=== PATIENT | female | born 1935 | race Caucasian/White ===

== ENCOUNTER 2024-02-15 10:17 | Inpatient (IN) ==
[2024-02-15 10:35] LABS: ABG O2 HGB 84.5 % (95-100); ABG PH 7.47 (7.35-7.45); HCO3 24.7 (21-28); MetHb 1.6 (0-1.5); TCO2 25.7 (19-24); sO2 85.5 % (94-98); tHb 12.6 g/dl (11.7-17.4)
--- NOTE | 2024-02-15 10:37 | ED.PDOC ---
General ED Provider: Dr. IRVIN JENKINS MD Chief Complaint: Shortness of Air Stated Complaint: Patient presents to ER via EMS from long-term facility complaining of shortness of breath. Reports onset was a couple days ago and has been gradually worsening. Has been using supplemental oxygen but has continued to feel weaker. No other alleviating or aggravating factors identified. EMS reports that the facility increased her oxygen to 6 L nasal cannula but was unable to improve her SpO2. EMS reports the highest they were able to get her SpO2 was in the 80s en route. Time Seen by Provider: 02/15/24 10:41 Mode of Arrival: Ambulance Information Source: Patient and EMT Exam Limitations: Clinical condition and Dementia Primary Care Provider: CLARICE MONROY Nursing and Triage Documentation Reviewed and Agree: Yes What is Opioid Naive?: *Opioid Naive implies the patient is not already taking opioids or not chronically receiving opioids on a daily basis. *PRN dosing is not "usually" associated with tolerance. *Patients are at higher risk of over-sedation and aspiration. What is Opioid Tolerant?: *Opioid Tolerance implies less than the expected response to an opioid. *Acquired tolerance is defined by the patient taking 60mg of oral morphine daily (or equianalgesic dose of another opioid) for 1 week or more. *Often associated with chronic pain. *May take more than usual dose to achieve desired pain control. Review of Systems Review Of Systems Constitutional: Reports No symptoms All Other Systems: Reviewed and Negative (Except for those listed in the HPI above.) [facility]LY [facility] Medical History Essential (primary) hypertension I10 - Essential (primary) hypertension (ICD-10) Presence of cardiac pacemaker Z95.0 - Presence of cardiac pacemaker (ICD-10) Other reduced mobility Z74.09 - Other reduced mobility (ICD-10) Cognitive communication deficit R41.841 - Cognitive communication deficit (ICD-10) Difficulty in walking, not elsewhere classified R26.2 - Difficulty in walking, not elsewhere classified (ICD-10) Muscle weakness (generalized) M62.81 - Muscle weakness (generalized) (ICD-10) Mixed hyperlipidemia E78.2 - Mixed hyperlipidemia (ICD-10) Repeated falls R29.6 - Repeated falls (ICD-10) Personal history of COVID-19 Z86.16 - Personal history of COVID-19 (ICD-10) Unsteadiness on feet R26.81 - Unsteadiness on feet (ICD-10) Other lack of coordination R27.8 - Other lack of coordination (ICD-10) Other abnormalities of gait and mobility R26.89 - Other abnormalities of gait and mobility (ICD-10) Dysphagia, oral phase R13.11 - Dysphagia, oral phase (ICD-10) Age related osteoporosis M81.0 - Age-related osteoporosis without current pathological fracture (ICD- 10) Cervicalgia M54.2 - Cervicalgia (ICD-10) 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 - 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 (ICD-10) 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 - Nonrheumatic aortic valve disorder, unspecified (ICD-10) Insomnia G47.00 - Insomnia, unspecified (ICD-10) Generalized anxiety disorder F41.1 - Generalized anxiety disorder (ICD-10) Depressive disorder F32.A - Depression, unspecified (ICD-10) Anemia D64.9 - Anemia, unspecified (ICD-10) Paroxysmal atrial fibrillation I48.0 - Paroxysmal atrial fibrillation (ICD-10) PAT (paroxysmal atrial tachycardia) I47.19 - Other supraventricular tachycardia (ICD-10) TIA (transient ischemic attack) G45.9 - Transient cerebral ischemic attack, unspecified (ICD-10) Cerebral ischemia I67.82 - Cerebral ischemia (ICD-10) Angina pectoris I20.9 - Angina pectoris, unspecified (ICD-10) 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 - Atherosclerotic heart disease of [place] coronary artery without angina pectoris (ICD-10) Dementia F03.90 - Unspecified dementia, unspecified severity, without behavioral disturbance, psychotic disturbance, mood disturbance, and anxiety (ICD-10) Female Reproductive History Menstrual Hx Hysterectomy: No Hx Tubal Ligation: No Physical Exam Physical Exam Appearance: Reports Ill-appearing, No pain distress and Well-nourished Ill-appearing: Mild Pain Distress: None Eyes: Reports BIRD, EOMI and Conjunctiva clear ENT: Reports Ears normal, Nose normal and Oropharynx normal Neck: Supple Respiratory: Reports Airway patent, Breath sounds clear, Breath sounds equal and Respirations nonlabored Cardiovascular: Reports RRR, Pulses normal, No rub and No murmur GI/: Reports Soft and Nontender Musculoskeletal: Reports Normal strength and ROM intact Skin: Reports Warm, Dry and Normal color Neurological: Reports Sensation intact, Motor intact, Alert and Oriented (A&Ox1 (person)) Psychiatric: Reports Affect appropriate and Mood appropriate Interpretation Radiology Interpretation Radiology Interpretation By: ED Physician Radiology Results: Negative Exam Interpreted: CXR Xray Comments: No acute cardiopulmonary process; cardiomegaly interpreted by me. Course Course 02/15/24 10:38 02/15/24 10:38 Orders, Labs, Meds: Lab Review 02/15/24 02/15/24 02/15/24 10:29 10:30 10:38 WBC 7.86 RBC 4.23 Hgb 11.7 L Hct 37.2 MCV 87.9 MCH 27.7 MCHC 31.5 L RDW Coeff of Clari 15.9 H Plt Count 239 Immature Gran % (Auto) 0.3 Neut % (Auto) 56.3 Lymph % (Auto) 29.8 [place] % (Auto) 5.9 Eos % (Auto) 7.3 H Baso % (Auto) 0.4 Neut # (Auto) 4.4 Lymph # (Auto) 2.3 [place] # (Auto) 0.5 Eos # (Auto) 0.6 Baso # (Auto) 0.0 Immature Gran # (Auto) 0.0 ESR 16 PT 11.1 H INR 1.07 Puncture Site Rt rad Base Excess 1.0 O2 Saturation 85.5 L ABG pH 7.47 H ABG pCO2 34.0 L ABG pO2 47.0 L* ABG HCO3 24.7 ABG Total CO2 25.7 H Edmundo Test Pos Hemoglobin 1.6 H Oxyhemoglobin 84.5 L Carboxyhemoglobin 2.0 H Total Hemoglobin 12.6 O2 Delivery Device Cannula Oxygen Liter Flow 4.00 FiO2 % 36.0 Sodium 140.0 Potassium 3.53 Chloride 108.0 H Carbon Dioxide 23.6 Anion Gap 11.93 BUN 15.9 Creatinine 0.89 Estimated GFR (MDRD) 60.00 BUN/Creatinine Ratio 17.86 Glucose 98.6 Lactic Acid 1.10 Calcium 8.94 Total Bilirubin 0.73 AST 32.7 ALT 22.8 Alkaline Phosphatase 121.7 Troponin I < 0.012 NT-Pro-B Natriuret Pep 783 H Total Protein 7.76 Albumin 4.12 Globulin 3.64 Albumin/Globulin Ratio 1.13 Procalcitonin < 0.05 Adenovirus (PCR) Not detected B. pertussis DNA (PCR) Not detected B.parapertussis DNA PCR Not detected C. pneumoniae DNA (PCR) Not detected Coronavirus OC43 (PCR) Not detected Coronavirus HKU1 (PCR) Not detected Coronavirus 229E (PCR) Not detected Coronavirus NL63 (PCR) Not detected Human Metapneumovir PCR Not detected Influenza Type A (PCR) Not detected Influenza B (RT-PCR) Not detected M. pneumoniae (PCR) Not detected Parainfluenza 1 (PCR) Not detected Parainfluenza 2 (PCR) Not detected Parainfluenza 3 (PCR) Not detected Parainfluenza 4 (PCR) Not detected RSV (PCR) Not detected Entero/Rhino (PCR) Detected H SARS-CoV-2 (PCR) Not detected Orders Category Date Time Status ADMIT OBSERVATION [PLACE PATIENT OBSERVATION] .TO ADMISSION 02/15/24 11:38 Active MEDSURG (MONITORED BED) ABG DRAW REQUEST Stat CARDIO 02/15/24 10:23 Completed NEBULIZER TREATMENT Stat CARDIO 02/15/24 10:26 Completed TELEMETRY MONITORING TELE CARE 02/15/24 11:38 Active ED APPLY O2 .ONCE EMERGENCY 02/15/24 10:23 Active ED SOFTWARE QUALITY ANALYST APPLIED .ONCE EMERGENCY 02/15/24 10:23 Active ED IV/MEDIPORT/POWERPORT .ONCE EMERGENCY 02/15/24 10:23 Active ED VITAL SIGNS .ONCE EMERGENCY 02/15/24 10:23 Active OXYGEN [ED APPLY O2] .ONCE EMERGENCY 02/15/24 10:50 Active ABG COOX Stat LAB 02/15/24 10:29 Completed BLOOD CULTURE (ED ONLY) Stat LAB 02/15/24 10:54 Received C-REACTIVE PROTEIN Stat LAB 02/15/24 10:38 Received CBC W/ AUTO DIFF Stat LAB 02/15/24 10:38 Completed COMPREHENSIVE METABOLIC PANEL Stat LAB 02/15/24 10:38 Completed ESR Stat LAB 02/15/24 10:38 Completed LACTIC ACID Stat LAB 02/15/24 10:38 Completed NT-PROBNP(ED) Stat LAB 02/15/24 10:38 Completed PROCALCITONIN Stat LAB 02/15/24 10:38 Completed PT WITH INR Stat LAB 02/15/24 10:38 Completed RESPIRATORY PANEL 2.1 (PCR) Stat LAB 02/15/24 10:30 Completed TROPONIN I Stat LAB 02/15/24 10:38 Completed URINALYSIS C & S IF INDICATED Stat LAB 02/15/24 18:05 Completed 0.9 % Sodium Chloride [Saline Flush] Meds 02/15/24 10:23 Active 1 syr IVF PRN PRN Ipratropium/Albuterol Neb [Duoneb] Meds 02/15/24 10:25 Discontinued 3 ml NEB ONCE STA Methylprednisolone Sod Succ/Pf [Solu-Medrol 125 mg] Meds 02/15/24 10:25 Discontinued 125 mg IVP ONCE STA CHEST, 1V AP ONLY Stat RADS 02/15/24 10:23 Completed Medications Generic Name Dose Route Start Last Admin Trade Name Freq PRN Reason Stop Dose Admin Acetaminophen 650 mg 02/15/24 13:00 Acetaminophen 325 Mg Tablet PO Q4H PRN Mild Pain Albuterol Sulfate 2.5 mg 02/15/24 13:00 Albuterol Sulfate 0.083% Vial.Neb NEB RTQ4H PRN Wheezing Albuterol/Ipratropium 3 ml 02/15/24 14:00 02/15/24 21:37 Ipratropium/Albuterol Vial.Neb NEB 3 ml RTQ4H ABHIJEET Administration Dextrose/Sodium Chloride 1,000 mls @ 75 mls/hr 02/15/24 15:30 02/15/24 17:04 Dextrose 5%-1/2ns Iv Solution IV 75 mls/hr .[id number] ABHIJEET Administration CEFTRIAXONE/D5W 1 GM PREMIX 1 gm in 50 mls @ 100 mls/hr 02/15/24 19:00 02/15/24 19:51 Rocephin 1 Gm/50 Ml D5w IV 02/18/24 18:59 100 mls/hr DAILY ABHIJEET Administration Methylprednisolone Sodium Succinate 40 mg 02/15/24 18:30 02/15/24 22:09 Methylprednisolone Sod Succ/Pf 40 Mg/Ml Vial IVP 40 mg Q8HR ABHIJEET Administration Sodium Chloride 1 syr 02/15/24 10:23 0.9% Sodium Chloride 10 Ml Disp.Syrin IVF PRN PRN To flush IV Discontinued Medications Generic Name Dose Route Start Last Admin Trade Name Freq PRN Reason Stop Dose Admin Albuterol/Ipratropium 3 ml 02/15/24 10:25 02/15/24 10:39 Ipratropium/Albuterol Vial.Neb NEB 02/15/24 10:26 3 ml ONCE STA Administration Methylprednisolone Sodium Succinate 125 mg 02/15/24 10:25 02/15/24 10:44 Methylprednisolone Sod Succ/Pf 125 Mg/2 Ml Vial IVP 02/15/24 10:26 125 mg ONCE STA Administration [address] [address] Diagnostic Imaging Diagnostic Imaging Report : [id number] Signed Patient: KWAME CIFUENTES Acct:[id number] Medical Record: [id number] : 1935 Loc: ED Room/Bed: Age/Sex: 88 / F ADM Status: REG ER Date of Service: 02/15/24 Ordering Physician: IRVIN JENKINS MD Procedure(s): CHEST, 1V AP ONLY Report Number(s): [id number] Accession Number(s): [id number] cc: CLARICE MONROY ; IRVIN JENKINS MD EXAM: CHEST RADIOGRAPH TECHNIQUE: Single frontal chest radiograph. HISTORY: Shortness of breath. COMPARISON: 05/18/2023. Correlation is also made with CT chest from 05/28/2023. FINDINGS: The patient is mildly leaning and rotated to the right. The patient's chin and and oxygen mask partially obscure the right upper chest. Left subclavian dual lead cardiac device, grossly stable in position. Oxygen tubing projects over the patient's right chest. Mild atelectasis of the right base. No pleural effusion or pneumothorax is seen. Stable cardiomegaly. Patient is status post coronary artery stenting. 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 No acute displaced rib fractures are identified. 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 IMPRESSION: 1. No acute findings in the chest. 2. Stable cardiomegaly. Dictated By: TERESSA BHATIA MD Signed By: TERESSA BHATIA MD Dictated Date/Time: 02/15/24 1116 Transcribed Date/Time: 02/15/24 1116 Signed Date/Time: 02/15/24 1125 Vital Signs: Temp Pulse Resp BP Pulse Ox O2 Flow Rate 02/15/24 10:40 4 02/15/24 10:32 98.2 F 91 20 135/74 85 L 11:36 - Spoke with on-call hospitalist (Maurizio Clark NP) regarding patient's status and current workup and management of acute respiratory failure secondary to +Rhino/enterovirus URI. Patient is resting comfortably using 10 L simple mask hemodynamically stable at this time. Patient has received DuoNeb x 1, Solu-Medrol 125. Respiratory panel pending at this time. Hospitalist agreed to admission to continue care. Discharge Plan Discharge Patient Disposition: PLACED OBSERVATION Discharge Problem: Respiratory failure with hypoxia, Viral upper respiratory illness Did you review [place] DUMP WORKER for ALL controlled substances?: Not Applicable ED Provider: IRVIN JENKINS Condition: Stable
[2024-02-15] MEDS: DUONEB NEB STA (10:39)
[2024-02-15 10:43] LABS: BASOPHILS % (AUTO) 0.4 % (0.0-3.0); EOSINOPHILS # (AUTO) 0.6 K/ul (0.0-0.7); EOSINOPHILS % (AUTO) 7.3 % (0.0-7.0); HEMATOCRIT 37.2 % (37.0-47.0); HEMOGLOBIN 11.7 g/dl (12.0-16.0); IMMATURE GRANULOCYTE % (AUTO) 0.3 % (0.0-5.0); LYMPHOCYTES # (AUTO) 2.3 K/uL (0.60-3.4); LYMPHOCYTES % (AUTO) 29.8 (10.0-50.0); MEAN CORPUSCULAR HEMOGLOBIN 27.7 pg (27.0-31.0); MEAN CORPUSCULAR HGB CONC 31.5 (31.8-35.4); MEAN CORPUSCULAR VOLUME 87.9 fl (81.0-99.0); MONOCYTES # (AUTO) 0.5 K/uL (0.4-2.0); MONOCYTES % (AUTO) 5.9 (0-10); NEUTROPHILS # (AUTO) 4.4 K/ul (2.0-6.9); NEUTROPHILS % (AUTO) 56.3 % (42.2-75.2); PLATELET COUNT 239 10^3/uL (140-440); RDW COEFFICIENT OF VARIATION 15.9 % (11.6-14.8); RED BLOOD COUNT 4.23 10^6/ul (4.20-5.40); WHITE BLOOD COUNT 7.86 K/ul (4.6-10.2)
[2024-02-15] MEDS: SOLU-MEDROL 125 MG IVP STA (10:44)
[2024-02-15 10:45] LABS: BORDETELLA PARAPERTUSSIS (PCR) NOT DETECTED (NOT DETECT); BORDETELLA PERTUSSIS (PCR) NOT DETECTED (NOT DETECT); CHLAMYDIA PNEUMONIAE (PCR) NOT DETECTED (NOT DETECT); CORONAVIRUS 229E (PCR) NOT DETECTED (NOT DETECT); CORONAVIRUS HKU1 (PCR) NOT DETECTED (NOT DETECT); CORONAVIRUS NL63 (PCR) NOT DETECTED (NOT DETECT); CORONAVIRUS OC43 (PCR) NOT DETECTED (NOT DETECT); HUMAN METAPNEUMOVIRUS (PCR) NOT DETECTED (NOT DETECT); INFLUENZA B (PCR) NOT DETECTED (NOT DETECT); MYCOPLASMA PNEUMONIAE (PCR) NOT DETECTED (NOT DETECT); PARAINFLUENZA VIRUS 1 (PCR) NOT DETECTED (NOT DETECT); PARAINFLUENZA VIRUS 2 (PCR) NOT DETECTED (NOT DETECT); PARAINFLUENZA VIRUS 3 (PCR) NOT DETECTED (NOT DETECT); PARAINFLUENZA VIRUS 4 (PCR) NOT DETECTED (NOT DETECT); RESPIRATORY SYNCYTIAL V (PCR) NOT DETECTED (NOT DETECT); SARS_COV_2 (PCR) NOT DETECTED (NOT DETECT)
[2024-02-15 10:55] LABS: PROTHROMBIN TIME 11.1 SEC (9.3-11.0)
[2024-02-15 10:56] LABS: ALANINE AMINOTRANSFERASE 22.8 U/L (0-35); ALBUMIN 4.12 g/dL (3.5-5.0); ALKALINE PHOSPHATASE 121.7 U/L (53-141); ASPARTATE AMINO TRANSFERASE 32.7 U/L (14-36); BILIRUBIN,TOTAL 0.73 mg/dL (0.2-1.3); BLOOD UREA NITROGEN 15.9 mg/dL (7-17); CALCIUM 8.94 mg/dL (8.4-10.2); CARBON DIOXIDE 23.6 mmol/L (22-30.0); CREATININE 0.89 mg/dL (0.60-1.30); GLUCOSE 98.6 mg/dL (74-106); POTASSIUM 3.53 mmol/L (3.5-5.1); TOTAL PROTEIN 7.76 g/dL (6.3-8.2)
[2024-02-15 11:08] LABS: TROPONIN I < 0.012 ng/ml (0.0000-0.120)
[2024-02-15 11:22] LABS: ERYTHROCYTE SEDIMENTATION RATE 16 mm/hr (0-20)
--- NOTE | 2024-02-15 11:25 | DI ---
EXAM: CHEST RADIOGRAPH TECHNIQUE: Single frontal chest radiograph. HISTORY: Shortness of breath. COMPARISON: 05/18/2023. Correlation is also made with CT chest from 05/28/2023. FINDINGS: The patient is mildly leaning and rotated to the right. The patient's chin and and oxygen mask parti ally obscure the right upper chest. Left subclavian dual lead cardiac device, grossly stable in posi tion. Oxygen tubing projects over the patient's right chest. Mild atelectasis of the right base. No pleural effusion or pneumothorax is seen. Stable cardiomegaly. Patient is status post coronary artery stenting. 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 No acute displaced rib fractures are identified. Stable 1.6 cm eggshell calcification of the left upper quadrant, correlates with splenic artery aneur ysm seen in the prior CT. IMPRESSION: 1. No acute findings in the chest. 2. Stable cardiomegaly.
[2024-02-15 11:39] LABS: ADENOVIRUS (PCR) NOT DETECTED (NOT DETECT); HUMAN RHINOVIRUS/ENTEROV (PCR) DETECTED (NOT DETECT)
[2024-02-15] MEDS ORDERED: ALBUTEROL 0.083% NEB NEB PRN (13:00)
[2024-02-15] MEDS ORDERED: TYLENOL PO PRN (13:00)
--- NOTE | 2024-02-15 13:04 | PCM ---
Date of Service Date Seen by Provider: 02/15/24 Time Seen by Provider: 13:00 Admit Day/Time Admission Date: 02/15/24 Admission Time: 12:15 Reason for Admission Chief Complaint: ACUTE RESPIRATORY FAILURE Hospital Provider Hospital Provider: OWEN STANLEY, [facility] [place] Primary Care Physician: CLARICE MONROY History of Present Illness History of Present Illness: 88 yo female [facility] local [facility] presented to the ER with shortness of breath. Patient has had a cough and not felt well over the last 3-4 days. Began requiring oxygen a couple days ago and progressively worsened. Per ER provider, EMS had sats in the 80s on 6L or so. Currently requiring 10L via simple mask. Patient normally is alert and oriented and ambulatory. Lethargic and unable to answer questions at this time. Case Discussed With Case Discussed With: Patient's case was discussed with the ER Physicians, Dr. Kaplan. Allergies Allergies Allergy/AdvReac Type Severity Reaction Status Date / Time No Known Allergies Allergy Verified 05/28/23 08:33 Current Medications Home Medications Milk of Magnesia 30 ml PO .every 3 days PRN constipation 08/27/22 [History Confirmed 02/15/24 Last Taken Unknown] acetaminophen 650 mg tablet,extended release 650 mg PO Q6HR PRN pain 08/27/22 [History Confirmed 02/15/24 Last Taken Unknown] aspirin 81 mg tablet,delayed release (Adult Low Dose Aspirin) 81 mg PO DAILY 08/27/22 [History Confirmed 02/15/24 Last Taken Unknown] bisacodyl 10 mg rectal suppository 10 mg HI ONCE PRN no results from milk of magnesia 08/27/22 [History Confirmed 02/15/24 Last Taken Unknown] memantine 14 mg capsule sprinkle,extended release 24hr 14 mg PO Q24H 08/27/22 [History Confirmed 02/15/24 Last Taken Unknown] amlodipine 5 mg tablet 5 mg PO .every am 05/28/23 [History Confirmed 02/15/24 Last Taken Unknown] apixaban 5 mg (74 tabs) tablets in a dose pack (Eliquis DVT-PE Treat 30D Start) See Rx Instructions PO .COMPLEX #74 ea 05/28/23 [Rx Confirmed 02/15/24 Last Taken Unknown] cyanocobalamin (vitamin B-12) 1,000 mcg capsule 1,000 mcg PO DAILY 05/28/23 [History Confirmed 02/15/24 Last Taken Unknown] famotidine 20 mg tablet 20 mg PO BID 05/28/23 [History Confirmed 02/15/24 Last Taken Unknown] fluticasone propionate 50 mcg/actuation nasal spray,suspension (24 Hour Allergy Relief) 1 spray intranasal DAILY PRN allergies 05/28/23 [History Confirmed 02/15/24 Last Taken Unknown] lisinopril 20 mg tablet 20 mg PO BID 05/28/23 [History Confirmed 02/15/24 Last Taken Unknown] loratadine 10 mg tablet (Allergy Relief (loratadine)) 10 mg PO DAILY 05/28/23 [History Confirmed 02/15/24 Last Taken Unknown] metoprolol succinate 25 mg tablet,extended release 24 hr 25 mg PO BID 05/28/23 [History Confirmed 02/15/24 Last Taken Unknown] nitroglycerin 0.4 mg sublingual tablet 0.4 mg sublingual PRN 05/28/23 [History Confirmed 02/15/24 Last Taken Unknown] ergocalciferol (vitamin D2) 1,250 mcg (50,000 unit) capsule 50,000 unit PO WEEKLY 02/15/24 [History Confirmed 02/15/24 Last Taken Unknown] Home Acetaminophen (Acetaminophen 325 Mg Tablet) 650 mg PO Q4H PRN PRN Reason: Mild Pain Albuterol Sulfate (Albuterol Sulfate 0.083% Vial.Neb) 2.5 mg NEB RTQ4H PRN PRN Reason: Wheezing Albuterol/Ipratropium (Ipratropium/Albuterol Vial.Neb) 3 ml NEB RTQ4H ABHIJEET Last Admin: 02/15/24 14:12 Dose: 3 ml Methylprednisolone Sodium Succinate (Methylprednisolone Sod Succ/Pf 40 Mg/Ml Vial) 40 mg IVP Q8HR ABHIJEET Sodium Chloride (0.9% Sodium Chloride 10 Ml Disp.Syrin) 1 syr IVF PRN PRN PRN Reason: To flush IV Discontinued Medications Albuterol/Ipratropium (Ipratropium/Albuterol Vial.Neb) 3 ml NEB ONCE STA Stop: 02/15/24 10:26 Last Admin: 02/15/24 10:39 Dose: 3 ml Methylprednisolone Sodium Succinate (Methylprednisolone Sod Succ/Pf 125 Mg/2 Ml Vial) 125 mg IVP ONCE STA Stop: 02/15/24 10:26 Last Admin: 02/15/24 10:44 Dose: 125 mg Opioid Naive vs. Tolerant Does Patient Take Opioids?: No Is Patient Opioid Naive?: Yes What is Opioid Naive?: *Opioid Naive implies the patient is not already taking opioids or not chronically receiving opioids on a daily basis. *PRN dosing is not "usually" associated with tolerance. *Patients are at higher risk of over-sedation and aspiration. Is Patient Opioid Tolerant?: No What is Opioid Tolerant?: *Opioid Tolerance implies less than the expected response to an opioid. *Acquired tolerance is defined by the patient taking 60mg of oral morphine daily (or equianalgesic dose of another opioid) for 1 week or more. *Often associated with chronic pain. *May take more than usual dose to achieve desired pain control. Physical examination Most Recent Vital Signs: Most Recent Vital Signs Temperature 98.2 F 02/15/24 10:32 Temperature Source Infrared 02/15/24 10:32 Pulse Rate 91 02/15/24 10:32 Respiratory Rate 20 02/15/24 10:32 Blood Pressure 135/74 02/15/24 10:32 O2 Sat by Pulse Oximetry 85 L 02/15/24 10:32 Oxygen Flow Rate 4 02/15/24 10:40 Height 5 ft 3 in 02/15/24 10:32 Weight 63.7 kg 02/15/24 10:32 Appearance: Positive Ill-Appearing HEENT: Positive Normocephalic and PERRLA Neck: Positive Supple Chest/Lungs: Positive Symmetrical With Equal Breath Sounds, Rhonci and Good Air Movement all 4 Lung [place] Heart: Positive RRR and Pulses Normal GI/: Positive Soft, Nontender, Bowel Sounds Normal and No Distention Musculoskeletal: Positive Not Examined Extremities: Positive Intact Peripheral Pulses, Stable Joints Without Laxity and Good ROM in All Joints Neurological: Positive Sensation Intact, Motor intact and Other (lethargy, not responding to verbal stimuli) Labs This Visit Labs This Visit: Labs This Visit 02/15/24 02/15/24 02/15/24 10:29 10:30 10:38 WBC 7.86 RBC 4.23 Hgb 11.7 L Hct 37.2 MCV 87.9 MCH 27.7 MCHC 31.5 L RDW Coeff of Clari 15.9 H Plt Count 239 Immature Gran % (Auto) 0.3 Neut % (Auto) 56.3 Lymph % (Auto) 29.8 [place] % (Auto) 5.9 Eos % (Auto) 7.3 H Baso % (Auto) 0.4 Neut # (Auto) 4.4 Lymph # (Auto) 2.3 [place] # (Auto) 0.5 Eos # (Auto) 0.6 Baso # (Auto) 0.0 Immature Gran # (Auto) 0.0 ESR 16 PT 11.1 H INR 1.07 Puncture Site Rt rad Base Excess 1.0 O2 Saturation 85.5 L ABG pH 7.47 H ABG pCO2 34.0 L ABG pO2 47.0 L* ABG HCO3 24.7 ABG Total CO2 25.7 H Edmundo Test Pos Hemoglobin 1.6 H Oxyhemoglobin 84.5 L Carboxyhemoglobin 2.0 H Total Hemoglobin 12.6 O2 Delivery Device Cannula Oxygen Liter Flow 4.00 FiO2 % 36.0 Sodium 140.0 Potassium 3.53 Chloride 108.0 H Carbon Dioxide 23.6 Anion Gap 11.93 BUN 15.9 Creatinine 0.89 Estimated GFR (MDRD) 60.00 BUN/Creatinine Ratio 17.86 Glucose 98.6 Lactic Acid 1.10 Calcium 8.94 Total Bilirubin 0.73 AST 32.7 ALT 22.8 Alkaline Phosphatase 121.7 Troponin I < 0.012 NT-Pro-B Natriuret Pep 783 H Total Protein 7.76 Albumin 4.12 Globulin 3.64 Albumin/Globulin Ratio 1.13 Procalcitonin < 0.05 Adenovirus (PCR) Not detected B. pertussis DNA (PCR) Not detected B.parapertussis DNA PCR Not detected C. pneumoniae DNA (PCR) Not detected Coronavirus OC43 (PCR) Not detected Coronavirus HKU1 (PCR) Not detected Coronavirus 229E (PCR) Not detected Coronavirus NL63 (PCR) Not detected Human Metapneumovir PCR Not detected Influenza Type A (PCR) Not detected Influenza B (RT-PCR) Not detected M. pneumoniae (PCR) Not detected Parainfluenza 1 (PCR) Not detected Parainfluenza 2 (PCR) Not detected Parainfluenza 3 (PCR) Not detected Parainfluenza 4 (PCR) Not detected RSV (PCR) Not detected Entero/Rhino (PCR) Detected H SARS-CoV-2 (PCR) Not detected Imaging Imaging: EXAM: CHEST RADIOGRAPH FINDINGS: The patient is mildly leaning and rotated to the right. The patient's chin and and oxygen mask partially obscure the right upper chest. Left subclavian dual l ead cardiac device, grossly stable in position. Oxygen tubing projects over the patient's right chest. Mild atelectasis of the right base. No pleural effusion or pneumothorax is seen. Stable cardiomegaly. Patient is status post coronary artery stenting. 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 No acute displaced rib fractures are identified. 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 IMPRESSION: 1. No acute findings in the chest. 2. Stable cardiomegaly. Review Statement Review Statement: I have independently reviewed and interpreted the labs/EKGs/imaging that were ordered by the ER provider. I have reviewed all outside records that are available currently in our EMR including imaging/notes/labs from previous visits. Plan Plan: 1. Acute Hypoxic Respiratory Failure in setting of rhinovirus - wean oxygen as tolerated, steroids, nebs 2. Rhinovirus - steroids and nebs 3. Acute Metabolic Encephalopathy secondary to above - avoid neurologically altering agents, NPO, monitor 4. Hypertension - chronic, holding home medications due to NPO status Dispo: Discussed plan of care via telephone with POA. Requesting medical care for the next 24 hours and then determine next steps after that. Plans to discuss patient with her sister to determine further plans if needed ie hospice. DVT Prophylaxis: Eliquis Time Spent: Greater than 80 minutes spent with patient, 50% of the time spent with this patient was devoted to counseling and coordination of care. [facility] minutes spent discussing advance care planning. Disposition: Admit to: Med/Surg obs Discussed Plan of Care with Dr. Da Mercado. Medications Medication Orders: Medications Ordered Category Date Time Status 0.9 % Sodium Chloride [Saline Flush] Meds 02/15/24 10:23 Active 1 syr IVF PRN PRN Acetaminophen [Tylenol] Meds 02/15/24 13:00 Ordered 650 mg PO Q4H PRN Albuterol Sulfate 0.083% Neb [Albuterol 0.083% Neb] Meds 02/15/24 13:00 Ordered 2.5 mg NEB RTQ4H PRN Ipratropium/Albuterol Neb [Duoneb] Meds 02/15/24 14:00 Ordered 3 ml NEB RTQ4H Methylprednisolone Sod Succ/Pf [Solu-Medrol 40 mg] Meds 02/15/24 18:30 Ordered 40 mg IVP Q8HR
[2024-02-15 13:27] VITALS: BMI 22.4
[2024-02-15] MEDS: DUONEB NEB SCH (14:12)
[2024-02-15] MEDS: DEXTROSE 5%-1/2NS IV SOLUTION 1,000 ML IV SCH (17:04)
[2024-02-15] MEDS: SOLU-MEDROL 40 MG IVP SCH (18:03)
[2024-02-15 18:19] LABS: BILIRUBIN,URINE Negative (NEGATIVE); CLARITY,URINE Cloudy (CLEAR); COLOR,URINE Yellow (YELLOW); GLUCOSE, URINE (UA) Negative (NEGATIVE); KETONES,URINE Negative (NEGATIVE); LEUKOCYTE ESTERASE ,URINE 1+ (NEGATIVE); NITRITE,URINE Negative (NEGATIVE); PROTEIN,URINE 2+ (NEGATIVE); URINE, BLOOD Trace-intact (NEGATIVE); UROBILINOGEN,URINE 0.2 (0.2)
[2024-02-15 18:23] LABS: URINE RBC, MICROSCOPIC 0-2 (0-2)
[2024-02-15 18:24] LABS: BACTERIA,URINE 4+ (NOT PRESENT); SQUAMOUS EPITHELIAL CELL,UR 0-2 (0-5); URINE WBC, MICROSCOPIC 30-50 (0-2)
[2024-02-15] MEDS: ROCEPHIN 1 GM/50 ML D5W 1 GM/50 ML BAG IV SCH (19:51)
[2024-02-16 05:37] LABS: EOSINOPHILS # (AUTO) 0.1 K/ul (0.0-0.7); EOSINOPHILS % (AUTO) 0.5 % (0.0-7.0); HEMATOCRIT 35.4 % (37.0-47.0); HEMOGLOBIN 11.1 g/dl (12.0-16.0); IMMATURE GRANULOCYTE % (AUTO) 0.3 % (0.0-5.0); LYMPHOCYTES # (AUTO) 0.9 K/uL (0.60-3.4); LYMPHOCYTES % (AUTO) 9.7 (10.0-50.0); MEAN CORPUSCULAR HEMOGLOBIN 27.8 pg (27.0-31.0); MEAN CORPUSCULAR HGB CONC 31.4 (31.8-35.4); MEAN CORPUSCULAR VOLUME 88.5 fl (81.0-99.0); MONOCYTES # (AUTO) 0.1 K/uL (0.4-2.0); MONOCYTES % (AUTO) 1.5 (0-10); NEUTROPHILS # (AUTO) 8.1 K/ul (2.0-6.9); PLATELET COUNT 218 10^3/uL (140-440); RDW COEFFICIENT OF VARIATION 15.9 % (11.6-14.8)
[2024-02-16 05:58] LABS: ALANINE AMINOTRANSFERASE 21.8 U/L (0-35); ALBUMIN 3.56 g/dL (3.5-5.0); ASPARTATE AMINO TRANSFERASE 25.4 U/L (14-36); BILIRUBIN,TOTAL 0.31 mg/dL (0.2-1.3); BLOOD UREA NITROGEN 25.6 mg/dL (7-17); CALCIUM 8.83 mg/dL (8.4-10.2); CHLORIDE 109.3 mmol/L (98-107); CREATININE 1.14 mg/dL (0.60-1.30); GLUCOSE 186.2 mg/dL (74-106); POTASSIUM 3.36 mmol/L (3.5-5.1); SODIUM 138.8 mmol/L (134.5-145); TOTAL PROTEIN 6.86 g/dL (6.3-8.2)
[2024-02-16] MEDS ORDERED: PEPCID PO SCH (09:25)
--- NOTE | 2024-02-16 09:30 | PCM.PROG ---
Date/Time Seen Date Seen by Provider: 02/16/24 Time Seen by Provider: 08:30 Provider Provider[facility] OWEN STANLEY[facility] Chief Complaint Chief Complaint: ACUTE RESPIRATORY FAILURE Subjective Subjective: UA collected via straight cath yesterday evening and significant UTI. Started on Rocephin. Per nursing staff, patient became more alert and ambulated to the bathroom with assistance. Patient oriented to person and surroundings but inappropriate conversation occurring still at this time. Weaned off of simple mask and is on NC oxygen at this time. States she is feeling some better. Objective Appearance: Positive No Apparent Distress Chest/Lungs: Positive Symmetrical With Equal Breath Sounds, Clear to Auscultation Bilaterally and Good Air Movement all 4 Lung [place] Heart: Positive RRR and Pulses Normal GI/: Positive Soft, Nontender and Bowel Sounds Normal Musculoskeletal: Positive Not Examined Neurological: Positive Sensation Intact, Motor intact, Alert and Disorinted Vital Signs Vital Signs: Vital Signs: Last 24 Hours 02/15/24 10:32 02/15/24 10:40 02/15/24 12:57 Temperature 98.2 F 98.2 F Temperature Source Infrared Pulse Rate 91 73 Respiratory Rate 20 20 Blood Pressure 135/74 Blood Pressure Mean Blood Pressure Left Arm 143/73 Blood Pressure Location Blood Pressure Position Supine O2 Sat by Pulse Oximetry 85 L 94 L Oxygen Delivery Method Simple Mask Oxygen Flow Rate 4 10 Fraction of Inspired Oxygen (FIO2) Height 5 ft 3 in 5 ft 6 in Weight 63.7 kg 63.1 kg Telemetry Type Telemetry Monitoring Irregular Telemetry Rate (Approximate) Telemetry Heart Rate Telemetry SPO2 EKG QRS Interval Telemetry Strip Reading 02/15/24 13:00 02/15/24 13:15 02/15/24 14:00 Temperature Temperature Source Pulse Rate Respiratory Rate Blood Pressure Blood Pressure Mean Blood Pressure Left Arm Blood Pressure Location Blood Pressure Position O2 Sat by Pulse Oximetry Oxygen Delivery Method Simple Mask Simple Mask Simple Mask Oxygen Flow Rate Fraction of Inspired Oxygen (FIO2) 10 Height Weight Telemetry Type Telemetry Monitoring Irregular Telemetry Rate (Approximate) Telemetry Heart Rate Telemetry SPO2 EKG QRS Interval Telemetry Strip Reading 02/15/24 14:18 02/15/24 15:00 02/15/24 15:10 Temperature Temperature Source Pulse Rate Respiratory Rate Blood Pressure Blood Pressure Mean Blood Pressure Left Arm Blood Pressure Location Blood Pressure Position O2 Sat by Pulse Oximetry 95 Oxygen Delivery Method Simple Mask Simple Mask Oxygen Flow Rate 10 Fraction of Inspired Oxygen (FIO2) Height Weight Telemetry Type Remote Telemetry Telemetry Monitoring Started Irregular Telemetry Rate (Approximate) 70-80 BPM Telemetry Heart Rate Telemetry SPO2 94 EKG QRS Interval 0.09 Telemetry Strip Reading Atrial Fib 02/15/24 16:00 02/15/24 17:00 02/15/24 17:58 Temperature Temperature Source Pulse Rate Respiratory Rate Blood Pressure Blood Pressure Mean Blood Pressure Left Arm Blood Pressure Location Blood Pressure Position O2 Sat by Pulse Oximetry Oxygen Delivery Method Simple Mask Simple Mask Simple Mask Oxygen Flow Rate Fraction of Inspired Oxygen (FIO2) Height Weight Telemetry Type Telemetry Monitoring Irregular Telemetry Rate (Approximate) Telemetry Heart Rate Telemetry SPO2 EKG QRS Interval Telemetry Strip Reading 02/15/24 17:58 02/15/24 19:00 02/15/24 19:00 Temperature 98.3 F Temperature Source Temporal Artery Scan Pulse Rate 70 Respiratory Rate 18 Blood Pressure 122/58 L Blood Pressure Mean 79 Blood Pressure Left Arm Blood Pressure Location Right Arm Blood Pressure Position Supine O2 Sat by Pulse Oximetry 96 Oxygen Delivery Method Simple Mask Simple Mask Oxygen Flow Rate 10 Fraction of Inspired Oxygen (FIO2) Height Weight Telemetry Type Bedside Monitor Telemetry Monitoring Continues Irregular Telemetry Rate (Approximate) Telemetry Heart Rate 70 Telemetry SPO2 EKG QRS Interval Telemetry Strip Reading atrial paced 02/15/24 19:30 02/15/24 20:00 02/15/24 20:00 Temperature Temperature Source Pulse Rate Respiratory Rate 20 Blood Pressure Blood Pressure Mean Blood Pressure Left Arm Blood Pressure Location Blood Pressure Position O2 Sat by Pulse Oximetry 98 Oxygen Delivery Method Simple Mask Simple Mask Simple Mask Oxygen Flow Rate 10 10 Fraction of Inspired Oxygen (FIO2) Height Weight Telemetry Type Telemetry Monitoring Irregular Telemetry Rate (Approximate) Telemetry Heart Rate Telemetry SPO2 EKG QRS Interval Telemetry Strip Reading 02/15/24 21:00 02/15/24 21:15 02/15/24 21:16 Temperature 98.1 F Temperature Source Temporal Artery Scan Pulse Rate 72 Respiratory Rate 16 Blood Pressure 119/59 L Blood Pressure Mean 79 Blood Pressure Left Arm Blood Pressure Location Right Arm Blood Pressure Position Supine O2 Sat by Pulse Oximetry 99 Oxygen Delivery Method Simple Mask Simple Mask Simple Mask Oxygen Flow Rate Fraction of Inspired Oxygen (FIO2) Height Weight Telemetry Type Telemetry Monitoring Irregular Telemetry Rate (Approximate) Telemetry Heart Rate Telemetry SPO2 EKG QRS Interval Telemetry Strip Reading 02/15/24 22:47 02/16/24 00:00 02/16/24 01:00 Temperature Temperature Source Pulse Rate Respiratory Rate Blood Pressure Blood Pressure Mean Blood Pressure Left Arm Blood Pressure Location Blood Pressure Position O2 Sat by Pulse Oximetry Oxygen Delivery Method Simple Mask Simple Mask Oxygen Flow Rate Fraction of Inspired Oxygen (FIO2) Height Weight Telemetry Type Bedside Monitor Telemetry Monitoring Continues Irregular Telemetry Rate (Approximate) Telemetry Heart Rate 68 Telemetry SPO2 EKG QRS Interval 0.07 Telemetry Strip Reading ATRIAL PACED 02/16/24 01:00 02/16/24 02:00 02/16/24 02:00 Temperature 97.3 F L Temperature Source Temporal Artery Scan Pulse Rate 70 Respiratory Rate 20 Blood Pressure 119/65 Blood Pressure Mean 83 Blood Pressure Left Arm Blood Pressure Location Right Arm Blood Pressure Position Supine O2 Sat by Pulse Oximetry 98 Oxygen Delivery Method Simple Mask Simple Mask Simple Mask Oxygen Flow Rate Fraction of Inspired Oxygen (FIO2) Height Weight Telemetry Type Telemetry Monitoring Irregular Telemetry Rate (Approximate) Telemetry Heart Rate Telemetry SPO2 EKG QRS Interval Telemetry Strip Reading 02/16/24 02:59 02/16/24 03:56 02/16/24 04:55 Temperature Temperature Source Pulse Rate Respiratory Rate Blood Pressure Blood Pressure Mean Blood Pressure Left Arm Blood Pressure Location Blood Pressure Position O2 Sat by Pulse Oximetry 99 Oxygen Delivery Method Simple Mask Simple Mask Simple Mask Oxygen Flow Rate 10 Fraction of Inspired Oxygen (FIO2) Height Weight Telemetry Type Telemetry Monitoring Irregular Telemetry Rate (Approximate) Telemetry Heart Rate Telemetry SPO2 EKG QRS Interval Telemetry Strip Reading 02/16/24 05:00 02/16/24 05:06 02/16/24 06:00 Temperature 97.5 F L Temperature Source Temporal Artery Scan Pulse Rate 70 Respiratory Rate 20 Blood Pressure 108/62 Blood Pressure Mean 77 Blood Pressure Left Arm Blood Pressure Location Right Arm Blood Pressure Position Supine O2 Sat by Pulse Oximetry 99 Oxygen Delivery Method Simple Mask Simple Mask Simple Mask Oxygen Flow Rate Fraction of Inspired Oxygen (FIO2) Height Weight Telemetry Type Telemetry Monitoring Irregular Telemetry Rate (Approximate) Telemetry Heart Rate Telemetry SPO2 EKG QRS Interval Telemetry Strip Reading 02/16/24 07:00 02/16/24 08:00 02/16/24 09:00 Temperature Temperature Source Pulse Rate Respiratory Rate Blood Pressure Blood Pressure Mean Blood Pressure Left Arm Blood Pressure Location Blood Pressure Position O2 Sat by Pulse Oximetry Oxygen Delivery Method Simple Mask Simple Mask Simple Mask Oxygen Flow Rate Fraction of Inspired Oxygen (FIO2) Height Weight Telemetry Type Telemetry Monitoring Irregular Telemetry Rate (Approximate) Telemetry Heart Rate Telemetry SPO2 EKG QRS Interval Telemetry Strip Reading Lab Results Lab Results: Lab Results: Last 24 Hours 02/16/24 02/15/24 02/15/24 05:35 18:05 10:38 WBC 9.20 7.86 RBC 4.00 L 4.23 Hgb 11.1 L 11.7 L Hct 35.4 L 37.2 MCV 88.5 87.9 MCH 27.8 27.7 MCHC 31.4 L 31.5 L RDW Coeff of Clari 15.9 H 15.9 H Plt Count 218 239 Immature Gran % (Auto) 0.3 0.3 Neut % (Auto) 88.0 H 56.3 Lymph % (Auto) 9.7 L 29.8 [place] % (Auto) 1.5 5.9 Eos % (Auto) 0.5 7.3 H Baso % (Auto) 0.0 0.4 Neut # (Auto) 8.1 H 4.4 Lymph # (Auto) 0.9 2.3 [place] # (Auto) 0.1 L 0.5 Eos # (Auto) 0.1 0.6 Baso # (Auto) 0.0 0.0 Immature Gran # (Auto) 0.0 0.0 ESR 16 PT 11.1 H INR 1.07 Puncture Site Base Excess O2 Saturation ABG pH ABG pCO2 ABG pO2 ABG HCO3 ABG Total CO2 Edmnudo Test Hemoglobin Oxyhemoglobin Carboxyhemoglobin Total Hemoglobin O2 Delivery Device Oxygen Liter Flow FiO2 % Sodium 138.8 140.0 Potassium 3.36 L 3.53 Chloride 109.3 H 108.0 H Carbon Dioxide 19.0 L 23.6 Anion Gap 13.86 11.93 BUN 25.6 H 15.9 Creatinine 1.14 0.89 Estimated GFR (MDRD) 45.00 60.00 BUN/Creatinine Ratio 22.45 17.86 Glucose 186.2 H D 98.6 Lactic Acid 1.10 Calcium 8.83 8.94 Total Bilirubin 0.31 0.73 AST 25.4 32.7 ALT 21.8 22.8 Alkaline Phosphatase 97.0 121.7 Troponin I < 0.012 C-Reactive Prot, Quant 3 NT-Pro-B Natriuret Pep 783 H Total Protein 6.86 7.76 Albumin 3.56 4.12 Globulin 3.30 3.64 Albumin/Globulin Ratio 1.07 1.13 Procalcitonin < 0.05 Urine Color Yellow Urine Clarity Cloudy Urine pH 6.0 Ur Specific [place] >=1.030 Urine Protein 2+ H Urine Glucose (UA) Negative Urine Ketones Negative Urine Blood Trace-intact H Urine Nitrite Negative Urine Bilirubin Negative Urine Urobilinogen 0.2 Ur Leukocyte Esterase 1+ H Urine Microscopic RBC 0-2 Urine Microscopic WBC 30-50 Ur Squamous Epith Cells 0-2 Urine Bacteria 4+ Adenovirus (PCR) B. pertussis DNA (PCR) B.parapertussis DNA PCR C. pneumoniae DNA (PCR) Coronavirus OC43 (PCR) Coronavirus HKU1 (PCR) Coronavirus 229E (PCR) Coronavirus NL63 (PCR) Human Metapneumovir PCR Influenza Type A (PCR) Influenza B (RT-PCR) M. pneumoniae (PCR) Parainfluenza 1 (PCR) Parainfluenza 2 (PCR) Parainfluenza 3 (PCR) Parainfluenza 4 (PCR) RSV (PCR) Entero/Rhino (PCR) SARS-CoV-2 (PCR) 02/15/24 02/15/24 10:30 10:29 WBC RBC Hgb Hct MCV MCH MCHC RDW Coeff of Clari Plt Count Immature Gran % (Auto) Neut % (Auto) Lymph % (Auto) [place] % (Auto) Eos % (Auto) Baso % (Auto) Neut # (Auto) Lymph # (Auto) [place] # (Auto) Eos # (Auto) Baso # (Auto) Immature Gran # (Auto) ESR PT INR Puncture Site Rt rad Base Excess 1.0 O2 Saturation 85.5 L ABG pH 7.47 H ABG pCO2 34.0 L ABG pO2 47.0 L* ABG HCO3 24.7 ABG Total CO2 25.7 H Edmundo Test Pos Hemoglobin 1.6 H Oxyhemoglobin 84.5 L Carboxyhemoglobin 2.0 H Total Hemoglobin 12.6 O2 Delivery Device Cannula Oxygen Liter Flow 4.00 FiO2 % 36.0 Sodium Potassium Chloride Carbon Dioxide Anion Gap BUN Creatinine Estimated GFR (MDRD) BUN/Creatinine Ratio Glucose Lactic Acid Calcium Total Bilirubin AST ALT Alkaline Phosphatase Troponin I C-Reactive Prot, Quant NT-Pro-B Natriuret Pep Total Protein Albumin Globulin Albumin/Globulin Ratio Procalcitonin Urine Color Urine Clarity Urine pH Ur Specific [place] Urine Protein Urine Glucose (UA) Urine Ketones Urine Blood Urine Nitrite Urine Bilirubin Urine Urobilinogen Ur Leukocyte Esterase Urine Microscopic RBC Urine Microscopic WBC Ur Squamous Epith Cells Urine Bacteria Adenovirus (PCR) Not detected B. pertussis DNA (PCR) Not detected B.parapertussis DNA PCR Not detected C. pneumoniae DNA (PCR) Not detected Coronavirus OC43 (PCR) Not detected Coronavirus HKU1 (PCR) Not detected Coronavirus 229E (PCR) Not detected Coronavirus NL63 (PCR) Not detected Human Metapneumovir PCR Not detected Influenza Type A (PCR) Not detected Influenza B (RT-PCR) Not detected M. pneumoniae (PCR) Not detected Parainfluenza 1 (PCR) Not detected Parainfluenza 2 (PCR) Not detected Parainfluenza 3 (PCR) Not detected Parainfluenza 4 (PCR) Not detected RSV (PCR) Not detected Entero/Rhino (PCR) Detected H SARS-CoV-2 (PCR) Not detected Additional Comments Additional Comments: I have independently reviewed and interpreted the labs/EKGs/imaging ordered during this hospital stay. I have reviewed outside records that are available in our EMR that pertain to medical stay including imaging/notes/labs from previous visits. Active Medications Active Medications: Medications Generic Name Dose Route Start Last Admin Trade Name Freq PRN Reason Stop Dose Admin Acetaminophen 650 mg 02/15/24 13:00 Acetaminophen 325 Mg Tablet PO Q4H PRN Mild Pain Albuterol Sulfate 2.5 mg 02/15/24 13:00 Albuterol Sulfate 0.083% Vial.Neb NEB RTQ4H PRN Wheezing Albuterol/Ipratropium 3 ml 02/15/24 14:00 02/16/24 04:56 Ipratropium/Albuterol Vial.Neb NEB 3 ml RTQ4H ABHIJEET Administration Apixaban 5 mg 02/16/24 09:25 Apixaban 5 Mg Tab PO BID ABHIJEET Aspirin 81 mg 02/16/24 09:25 Aspirin 81 Mg Tablet. PO DAILY [facility] Famotidine 20 mg 02/16/24 09:25 Famotidine 20 Mg Tablet PO BID [facility] CEFTRIAXONE/D5W 1 GM PREMIX 1 gm in 50 mls @ 100 mls/hr 02/16/24 21:00 Rocephin 1 Gm/50 Ml D5w IV 02/18/24 18:59 BEDTIME ABHIJEET Methylprednisolone Sodium Succinate 40 mg 02/15/24 18:30 02/16/24 05:53 Methylprednisolone Sod Succ/Pf 40 Mg/Ml Vial IVP 40 mg Q8HR ABHIJEET Administration Metoprolol Succinate 25 mg 02/16/24 09:25 Metoprolol Succinate 25 Mg Tab.Er.24h PO BID ABHIJEET Non-Formulary Medication 14 mg 02/16/24 09:25 Memantine PO Q24H ABHIJEET Sodium Chloride 1 syr 02/15/24 10:23 0.9% Sodium Chloride 10 Ml Disp.Syrin IVF PRN PRN To flush IV Plan Plan: 1. Acute Hypoxic Respiratory Failure in setting of rhinovirus - Improving, on NC this am, wean oxygen as tolerated, steroids, nebs 2. Rhinovirus - steroids and nebs 3. UTI - gram neg rods on culture, rocephin 1G Q24H 4. Acute Metabolic Encephalopathy secondary to above - Improving, avoid neurologically altering agents, NPO, monitor 5. Hypertension - chronic, lower BPs at this time, holding home medications 6. Afib - continue eliquis and metoprolol Review Statement Review Statement: I have personally discussed and reviewed the patient's visit/currently labs/imaging/decision making with Dr. Mercado, my supervising attending. Greater that 50 minutes spent with patient, 50% of the time spent with this patient was devoted to counseling and coordination of care.
[2024-02-16] MEDS: PEPCID PO SCH (10:10)
[2024-02-16] MEDS: ELIQUIS PO SCH (10:10)
[2024-02-16] MEDS: ASPIRIN EC PO SCH (10:10)
[2024-02-16] MEDS: TOPROL XL PO SCH (10:10)
[2024-02-16] MEDS: MEMANTINE 14 MG PO SCH (10:11)
--- NOTE | 2024-02-16 14:06 | RS.PTINEVL ---
Subjective Patient information Date of Evaluation: 02/16/24 Date of Arrival on Unit: 02/15/24 Admitted From:: [facility] Diagnosis: UTI, acute respiratory failure, rhinovirus Usual Living Arrangement: [facility] Living Arrangement Comments: per intermediate pt amb independently through their facility Home Environment: Apartment (nusing home room) and Level/No stairs Medical History: Hypertension Medical History Comments:: acute metabolic encephalopathy LATEX ALLERGY?: No Medications: see chart Subjective Information/ Patient Comments:: pt states "I am wet. No one has come to check on me." (Nurse in room when PT entered.) pt reports that she hasn't wa lked in months and that no one comes when she pushes her button. group home reports pt amb independently. pt emotional stating "are you going to stay with me?"Advised pt that the nurses are here for her and are taking care of her. Level of function Abilities prior to this admission: per intermediate pt amb in intermediate has assist with ADL's Current Level of Function: Partially Dependent Current Equipment Used at Home: walker Pain Assessement Location Left Arm: Pain Behavior: Facial Grimacing Effects of Pain: pt c/o pain at IV site, nursing assessed site. Interventions Objective Patient Orientation: Person and Place Current Interventions: IV's, Oxygen and Telemetry Observation: pt with flexed posture, increased kyphosis Range of Motion ROM Right Upper Extremity AROM: WFL's Left Upper Extremity AROM: WFL's Right Lower Extremity AROM: WFL's Left Lower Extremity AROM: WFL's Muscle Strength Muscle Strength Right Upper Extremity: Mild Weakness (grossly 4-/5 ) Left Upper Extremity: Mild Weakness (grossly 4-/5 ) Right Lower Extremity: Mild Weakness (hip flex 4-/5, knee flex 4-/5, ext 4/5, ankle 4/5 ) Left Lower Extremity: Mild Weakness (hip flex 4-/5, knee flex 4-/5, ext 4/5, ankle 4/5 ) Sensation Sensation Right Upper Extremity: Intact/Normal Left Upper Extremity: Intact/Normal Right Lower Extremity: Intact/Normal Left Lower Extremity: Intact/Normal Palpation Palpation Findings: Tenderness (L UE) Balance Sitting Balance and Reactions Static Sitting Balance: Fair Dynamic Sitting Balance: Poor Standing Balance and Reactions Static Standing Balance: Poor Dynamic Standing Balance: Poor Functional Mobility Bed Mobility Rolling R/L: Min Assist and 1 person assist Scooting: Min Assist and 1 person assist Supine to Sit: Min Assist and 1 person assist Transfers Sit to Stand: CGA, Min Assist and 1 person assist Stand to Sit: Min Assist and 1 person assist Safety Awareness Safety Awareness: Poor RONAN INDEX SCORE: n/a Ambulation Ambulation Assistive Device Used: Rolling Walker Orthotic/Prosthetic Device: No Distance: 5ft Assistance needed with Ambulation: Min Assist and 1 person assist Gait Deviations: Step-to gait, Forward posture and Short stride Ambulation Comments: pt refused to amb further than the chair. Factors Affecting Ambulation: Decreased Balance, Breathing/O2 Saturation, Weakness, Decreased Safety, Cognitive Status and Limited Endurance Treatment time Units charged ADL: 1 (TA) Time with patient Length of Evaluation: 19 Total treatment time: 28 Patient Education Education Patient Education: Education of Plan of Care Teaching Recipient: Patient Teaching Methods: Discussion Comments: discussion with pt that she was safe here and the nurses would take good care of her. Assessment Assessment Problem List:: Decreased level of function, Requires training/education, Decreased safety/Risk of falls, Weakness, Pain limits previous level of function and Cognitive status limits abilities Rehab Potential: Fair Further Therapy Indicated?: Yes Candidate for Swing Bed for Therapy Services?: Feel pt is not a candidate for swing bed due to cognitive deficits and is resident of intermediate. Evaluation Complexity: HISTORY: Medium, EXAM OF BODY SYSTEMS: Medium, CLINICAL PRESENTATION: Medium and CLINICAL DECISION MAKING: Medium Patient's Goal(s): pt unable to express goal Short Term Goals GOAL #1: pt demonstrate rolling and scooting to edge of bed CGA Goal to be met by: 02/18/24 GOAL #2: Transfer sup to/from sit CGA Goal to be met by: 02/18/24 GOAL #3: Transfer sit to/from stand CGA Goal to be met by: 02/18/24 GOAL #4: pt amb 50ft with rwx with min x 1 Goal to be met by: 02/18/24 GOAL #5: Improve BLE strength 4/5 Goal to be met by: 02/18/24 [employer] Goals GOAL #1: pt transfer sup to/from sit to/from stand CGA to SBA Goal to be met by: 02/20/24 GOAL #2: pt amb 60ft with rwx with CGA x 1 Goal to be met by: 12/24/24 GOAL #3: . Plan Plan of Care: Therapeutic EX and Therapeutic Activity Other:: gait training Frequency of Treatment: 1-2 X day, as tolerated Duration of Treatment: 4 days Anticipated Discharge Destination: [facility] Treatment Diagnosis (ICD 10 Codes): gait difficulty R 26.2 Impaired balance R 26.81 weakness M 62.81 Has the Physician been added for Co-signature?: Yes
[2024-02-16] MEDS: ROCEPHIN 1 GM/50 ML D5W 1 GM/50 ML BAG IV SCH (20:56)
[2024-02-16] MEDS: LIDOCAINE 1% 5 ML SDV IM ONE (22:01)
[2024-02-16] MEDS: ROCEPHIN 1 GM VIAL IM ONE (22:03)
[2024-02-17 05:33] VITALS: BP 147/82; PULSE 70; RESP 16; TEMP 97.3
[2024-02-17 05:43] LABS: BASOPHILS % (AUTO) 0.1 % (0.0-3.0); EOSINOPHILS % (AUTO) 0.1 % (0.0-7.0); HEMATOCRIT 36.2 % (37.0-47.0); HEMOGLOBIN 11.4 g/dl (12.0-16.0); IMMATURE GRANULOCYTE # (AUTO) 0.1 (0.0-1.0); IMMATURE GRANULOCYTE % (AUTO) 0.7 % (0.0-5.0); LYMPHOCYTES % (AUTO) 6.1 (10.0-50.0); MEAN CORPUSCULAR HEMOGLOBIN 27.7 pg (27.0-31.0); MEAN CORPUSCULAR HGB CONC 31.5 (31.8-35.4); MEAN CORPUSCULAR VOLUME 87.9 fl (81.0-99.0); MONOCYTES # (AUTO) 0.4 K/uL (0.4-2.0); MONOCYTES % (AUTO) 2.3 (0-10); NEUTROPHILS # (AUTO) 15.2 K/ul (2.0-6.9); NEUTROPHILS % (AUTO) 90.7 % (42.2-75.2); PLATELET COUNT 239 10^3/uL (140-440); RDW COEFFICIENT OF VARIATION 16.3 % (11.6-14.8); RED BLOOD COUNT 4.12 10^6/ul (4.20-5.40)
[2024-02-17 06:07] LABS: ALANINE AMINOTRANSFERASE 21.9 U/L (0-35); ALBUMIN 3.7 g/dL (3.5-5.0); ALKALINE PHOSPHATASE 93.7 U/L (53-141); ASPARTATE AMINO TRANSFERASE 27.9 U/L (14-36); BILIRUBIN,TOTAL 0.23 mg/dL (0.2-1.3); BLOOD UREA NITROGEN 33.3 mg/dL (7-17); CALCIUM 9.08 mg/dL (8.4-10.2); CARBON DIOXIDE 22.5 mmol/L (22-30.0); CHLORIDE 108.4 mmol/L (98-107); CREATININE 0.98 mg/dL (0.60-1.30); GLUCOSE 121.2 mg/dL (74-106); POTASSIUM 4.09 mmol/L (3.5-5.1); SODIUM 138.5 mmol/L (134.5-145); TOTAL PROTEIN 7.1 g/dL (6.3-8.2)
[2024-02-17 06:26] LABS: WHITE BLOOD COUNT 16.75 K/ul (4.6-10.2)
[2024-02-17] MEDS: PREDNISONE PO SCH (08:30)
[2024-02-17] MEDS: KEFLEX PO SCH (08:31)
--- NOTE | 2024-02-17 09:27 | DCSUM ---
Admission Date Admission Date: 02/15/24 Discharge Date Discharge Date: 02/17/24 Admission Diagnosis Admission Diagnosis: 1. Acute Hypoxic Respiratory Failure in setting of rhinovirus 2. Rhinovirus 3. Acute Metabolic Encephalopathy secondary to above 4. Hypertension Discharge Diagnosis Discharge Diagnosis: 1. Acute Hypoxic Respiratory Failure in setting of rhinovirus - Resolved, on RA 2. Rhinovirus - Improving 3. UTI - Improving 4. Acute Metabolic Encephalopathy secondary to above - Resolved, at baseline 5. Hypertension - chronic, stable 6. Afib - chronic, stable Hospital Provider Hospital Provider: [facility] Physician Primary Care Physician: CLARICE MONROY Summary of History and Physical Summary of History and Physical: 88 yo female from local [facility] presented to the ER with shortness of breath. Patient has had a cough and not felt well over the last 3-4 days. Began requiring oxygen a couple days ago and progressively worsened. Per ER provider, EMS had sats in the 80s on 6L or so. Currently requiring 10L via simple mask. Patient normally is alert and oriented and ambulatory. Lethargic and unable to answer questions at this time. Hospital Course Subjective: During stay, patient was treated for acute hypoxic respiratory failure secondary to rhinovirus with steroids and nebs. Patient was weaned from simple mask at 10L to NC yesterday at 2L. Now weaned to RA this am. Sat is remaining. 94-95% on RA. Sent RX for albuterol nebs prn. UA was collected on admission and patient was found to have UTI secondary to E. Coli per C&S. She was given rocephin and tolerated well. D/c with rest of course keflex bid. Completes on 02/20. She also has developed redness and itching to the L eye. Started on erythromycin ointment for treatment of conjunctivitis. Mental status has greatly improved from completely lethargic and minimally responsive to alert and oriented x 1-2 at baseline prior level d/t dementia. Of note, leukocytosis present. However, patient is afebrile, not tachycardic and shows no signs of acute bacterial infection. Likely due to steroids given over last 2 days. D/c to [facility] Appearance: Pleasant, No Apparent Distress and Alert HEENT: MMM, Supple and No JVD CVS: No Murmur Abdomen: Soft, Non-Tender and No Distention Respiratory: No Dyspnea Extremities: No Edema Vital Signs: Most Recent Vital Signs Temperature 97.3 F L 02/17/24 05:32 Temperature Source Temporal Artery Scan 02/17/24 05:32 Temperature Source Infrared 02/15/24 10:32 Pulse Rate 70 02/17/24 05:32 Respiratory Rate 16 02/17/24 05:32 Blood Pressure 147/82 H 02/17/24 05:32 Blood Pressure Mean 103 02/17/24 05:32 Blood Pressure Left Arm 143/73 02/15/24 12:57 Blood Pressure Location Left Arm 02/17/24 05:32 Blood Pressure Position Supine 02/17/24 05:32 O2 Sat by Pulse Oximetry 91 L 02/17/24 05:32 Oxygen Delivery Method Nasal Cannula 02/17/24 08:00 Oxygen Flow Rate 2 02/17/24 08:00 Fraction of Inspired Oxygen (FIO2) 10 02/15/24 13:15 Height 5 ft 6 in 02/15/24 12:57 Weight 63.1 kg 02/15/24 12:57 Telemetry Type Bedside Monitor 02/16/24 07:00 Telemetry Monitoring Continues 02/16/24 07:00 Irregular Telemetry Rate (Approximate) 70-80 BPM 02/15/24 15:10 Telemetry Heart Rate 73 02/16/24 07:00 Telemetry SPO2 94 02/15/24 15:10 EKG QRS Interval 0.10 02/16/24 07:00 Telemetry Strip Reading refused 02/17/24 07:00 Imaging: EXAM: CHEST RADIOGRAPH TECHNIQUE: Single frontal chest radiograph. HISTORY: Shortness of breath. COMPARISON: 05/18/2023. Correlation is also made with CT chest from 05/28/2023. FINDINGS: The patient is mildly leaning and rotated to the right. The patient's chin and and oxygen mask partially obscure the right upper chest. Left subclavian dual lead cardiac device, grossly stable in position. Oxygen tubing projects over the patient's right chest. Mild atelectasis of the right base. No pleural effusion or pneumothorax is seen. Stable cardiomegaly. Patient is status post coronary artery stenting. 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 No acute displaced rib fractures are identified. 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 IMPRESSION: 1. No acute findings in the chest. 2. Stable cardiomegaly. Lab Results Last 24 Hours: 02/17/24 05:30 WBC 16.75 H D RBC 4.12 L Hgb 11.4 L Hct 36.2 L MCV 87.9 MCH 27.7 MCHC 31.5 L RDW Coeff of Clari 16.3 H Plt Count 239 Immature Gran % (Auto) 0.7 Neut % (Auto) 90.7 H Lymph % (Auto) 6.1 L [place] % (Auto) 2.3 Eos % (Auto) 0.1 Baso % (Auto) 0.1 Neut # (Auto) 15.2 H Lymph # (Auto) 1.0 [place] # (Auto) 0.4 Eos # (Auto) 0.0 Baso # (Auto) 0.0 Immature Gran # (Auto) 0.1 Sodium 138.5 Potassium 4.09 Chloride 108.4 H Carbon Dioxide 22.5 Anion Gap 11.69 BUN 33.3 H Creatinine 0.98 Estimated GFR (MDRD) 54.00 BUN/Creatinine Ratio 33.97 Glucose 121.2 H D Calcium 9.08 Total Bilirubin 0.23 AST 27.9 ALT 21.9 Alkaline Phosphatase 93.7 Total Protein 7.10 Albumin 3.70 Globulin 3.40 Albumin/Globulin Ratio 1.08 Discharge Instructions Discharge Planning: Discharge Planning > 40 minutes If patient is discharged with left ventricular systolic dysfunction: NO Discharged with a beta armand? [] If no, why not? [] Discharged with an christy/arb? [] If no, why not? [] Diagnosis: Acute Hypoxic Respiratory Failure secondary to Rhinovirus, UTI, Conjunctivitis Diet: Regular Activity: as tolerated Follow-up with PCP this week Medications: Albuterol nebs prn, Prednisone, Keflex, Erythromycin Discharge Medications: Medications at Discharge (Home Meds & RX) Milk of Magnesia 30 ml PO .every 3 days PRN constipation 08/27/22 acetaminophen 650 mg tablet,extended release 650 mg PO Q6HR PRN pain 08/27/22 aspirin 81 mg tablet,delayed release (Adult Low Dose Aspirin) 81 mg PO DAILY 08/27/22 bisacodyl 10 mg rectal suppository 10 mg NV ONCE PRN no results from milk of magnesia 08/27/22 memantine 14 mg capsule sprinkle,extended release 24hr 14 mg PO Q24H 08/27/22 amlodipine 5 mg tablet 5 mg PO .every am 05/28/23 cyanocobalamin (vitamin B-12) 1,000 mcg capsule 1,000 mcg PO DAILY 05/28/23 famotidine 20 mg tablet 20 mg PO BID 05/28/23 fluticasone propionate 50 mcg/actuation nasal spray,suspension (24 Hour Allergy Relief) 1 spray intranasal DAILY PRN allergies 05/28/23 lisinopril 20 mg tablet 20 mg PO BID 05/28/23 loratadine 10 mg tablet (Allergy Relief (loratadine)) 10 mg PO DAILY PRN allergy symptoms 05/28/23 metoprolol succinate 25 mg tablet,extended release 24 hr 25 mg PO BID 05/28/23 nitroglycerin 0.4 mg sublingual tablet 0.4 mg sublingual PRN 05/28/23 apixaban 5 mg (74 tabs) tablets in a dose pack ([employer] DVT-PE Treat 30D Start) 5 mg PO BID 02/15/24 ergocalciferol (vitamin D2) 1,250 mcg (50,000 unit) capsule 50,000 unit PO WEEKLY 02/15/24 Discharge Plan Discharge Discharge Orders: Discharge Patient (ONCE); Ordered 02/17/24 Ordered By: KATJA LONDON Activity Restrictions/Additional Instructions: Diagnosis: Acute Hypoxic Respiratory Failure secondary to Rhinovirus, UTI, Conjunctivitis Diet: Regular Activity: as tolerated Follow-up with PCP this week Medications: Albuterol nebs prn, Prednisone, Keflex, Erythromycin Instructions: Urinary Tract Infection in Women (GEN), Viral Syndrome (GEN), Conjunctivitis (GEN), Acute Respiratory Failure (GEN) Patient Disposition: TRANSFER SNF Prescriptions: New albuterol sulfate 2.5 mg /3 mL (0.083 %) Solution For Nebulization 2.5 mg NEB RTQ4H PRN (Reason: shortness of breath or wheezing) Qty: 100 0RF cephalexin 500 mg capsule 500 mg PO BID Qty: 9 0RF prednisone 10 mg Tablet 10 mg PO BIDWM2 Qty: 5 0RF erythromycin 5 mg/gram (0.5 %) ointment 0.5 inch LEFTEYE BID 6 Days Qty: 3.5 0RF Continued amlodipine 5 mg tablet 5 mg PO .every am famotidine 20 mg tablet 20 mg PO BID lisinopril 20 mg tablet 20 mg PO BID metoprolol succinate 25 mg tablet extended release 24 hr 25 mg PO BID nitroglycerin 0.4 mg tablet, sublingual 0.4 mg sublingual PRN Rx Instructions: every 5 minutes, up to 3 doses cyanocobalamin (vitamin B-12) 1,000 mcg capsule 1,000 mcg PO DAILY loratadine [Allergy Relief (loratadine)] 10 mg tablet 10 mg PO DAILY PRN (Reason: allergy symptoms) fluticasone propionate [24 Hour Allergy Relief] 50 mcg/actuation spray,suspension 1 spray intranasal DAILY PRN (Reason: allergies) Rx Instructions: administer into each nostril memantine 14 mg capsule,sprinkle,ER 24hr 14 mg PO Q24H aspirin [Adult Low Dose Aspirin] 81 mg tablet,delayed release (DR/EC) 81 mg PO DAILY acetaminophen 650 mg tablet extended release 650 mg PO Q6HR PRN (Reason: pain) Milk of Magnesia 30 mL 30 ml PO .every 3 days PRN (Reason: constipation) bisacodyl 10 mg suppository 10 mg NV ONCE PRN (Reason: no results from milk of magnesia) ergocalciferol (vitamin D2) 1,250 mcg (50,000 unit) capsule 50,000 unit PO WEEKLY Eliquis DVT-PE Treat 30D Start 5 mg (74 tabs) tablets,dose pack 5 mg PO BID Rx Instructions: orally per package directions Did you review [place] [employer] for ALL controlled substances?: No Discussed opioids are addictive and Narcan is available by prescription or from pharmacy.: No Condition: Stable
[2024-02-17] MEDS: ERYTHROMYCIN LEFTEYE SCH (10:05)
== END 2024-02-17 12:00 | DRG 189 ==
LOC: ED 10:17 → SCU 10:17
PROVIDERS: ADMIT Hospitalist; ATTEND Nurse Practitioner Family